=== PATIENT | male | born 1955 | race Caucasian/White ===

== ENCOUNTER 2018-11-12 17:54 | Emergency (ER) | payer BC ==
[2018-11-12] MEDS ORDERED: Metoclopramide IV* 5 MG/ML 2 ML VIAL IV ONE (18:09)
[2018-11-12] MEDS ORDERED: NS 0.9% 1000 ML** 1,000 ML IV ONE (18:09)
[2018-11-12] MEDS ORDERED: Morphine 4 MG/ML VIAL (1 ml) 4 MG/ML VIAL IV ONE (18:10)
[2018-11-12] MEDS ORDERED: DiMENhydriNATE IV* 50 MG/ML VIAL IV PUSH ONE (18:10)
[2018-11-12 19:24] LABS: INR 0.98 (0.77-1.02)
[2018-11-12 19:31] LABS: ABS Basophils 0 10^3/ul (0-0.2); ABS Eosinophils 0.1 10^3/ul (0-0.6); ABS Lymphocytes 1.1 10^3/ul (1.0-4.8); ABS Monocytes 0.6 10^3/ul (0-0.8); ABS Neutrophils 11.3 10^3/ul (1.5-7.7); ABS Nucleated RBC 0 10^3/ul; Eosinophil % 0.8 %; Hematocrit 44 % (36-46); Hemoglobin 14.9 g/dL (14.0-18.0); Lymphocyte % 8.2 %; Mean Corpuscular HGB Conc 34 g/dL (31-36); Mean Corpuscular Hemoglobin 29 pg (27-31); Mean Corpuscular Volume 87 fL (80-94); Mean Platelet Volume 8.6 fL (7.4-10.4); Nucleated Red Blood Cells % 0; Platelet Count 258 10^3/uL (150-450); Red Blood Count 5.08 10^6 /uL (4.18-5.48); Red Cell Distribution Width 14 % (10.5-15); White Blood Count 13.1 10^3/uL (3.5-10.8)
[2018-11-12 19:44] LABS: Albumin 4.3 g/dL (3.2-5.2); Albumin/Globulin Ratio 1.6 (1-3); BUN/Creatinine Ratio 16.1 (8-20); Calcium 9.6 mg/dL (8.6-10.3); EGFR African American 99.3 (>60); EGFR Non-African American 82.1 (>60); Globulin 2.7 g/dL (2-4); Potassium 4.3 mmol/L (3.5-5.0); Total Bilirubin 0.5 mg/dL (0.2-1.0)
[2018-11-12 19:49] LABS: Activated Partial Thrombo Time 25.9 seconds (26.0-36.3)
[2018-11-12 20:00] LABS: TSH (Thyroid Stimulating Horm) 3.32 mcIU/mL (0.34-5.60)
[2018-11-12] MEDS ORDERED: Ondansetron INJ* 2 MG/ML VIAL IV ONE (20:15)
--- NOTE | 2018-11-12 21:02 | ED ---
Headache - HPI Summary HPI Summary: Patient complains of sudden onset worst headache of life, severe nausea vomiting , dizziness, blurry vision at 3 PM today while sitting in his recliner watching TV. Patient states dizziness and blurred vision resolved after about 20 minutes , but per severe headache and nausea vomiting persist. Patient denies prior history of similar symptoms, prior history of headache. Patient denies medical history but has not seen a PCP in 13 years. Patient is retired, frequently sits and recliner and watches television through the day per son. Patient denies fever, cough, sore throat, neck stiffness, CP, SOB, diarrhea, abdominal pain, change in urine, change in BM. Medical history is none. Occasional EtOH. Denies recreational drug use. Nonsmoker. - History Of Current Complaint Chief Complaint: EDHeadache Stated Complaint: LIGHT HEADED/NAUSEA/VOMITING PER PT Time Seen by Provider: 11/12/18 18:05 Hx Obtained From: Patient Onset/Duration: Sudden Onset Initially Headache Was: "Worst Headache Ever", Severe Currently Pain Is: Severe Timing: Constant Character: Throbbing, Pressure Location of Headache: Frontal Aggravating Factor: Exertion, Position Change Allevating Factors: Nothing Associated Signs And Symptoms: Dizziness, Nausea, Vomiting, Visual Changes - Risk Factors SAH Risk Factors: Negative - Allergies/Home Medications Allergies/Adverse Reactions: Allergies Allergy/AdvReac Type Severity Reaction Status Date / Time No Known Allergies Allergy Verified 11/12/18 18:02 PMH/Surg Hx/FS Hx/Imm Hx Endocrine/Hematology History: Denies: Hx Diabetes Cardiovascular History: Denies: Hx Hypertension History: Denies: Hx Dialysis Sensory History: Denies: Hx Eye Prosthesis EENT History: Denies: Hx Deafness Neurological History: Denies: Hx Dementia Psychiatric History: Denies: Hx Autism Infectious Disease History: No Infectious Disease History: Denies: Traveled Outside the [place] in Last 30 Days - Family History Known Family History: Negative: Cardiac Disease, Hypertension, Diabetes - Social History Alcohol Use: Occasionally Substance Use Type: Reports: None Smoking Status (MU): Former Smoker Review of Systems Constitutional: Negative Positive: Blurred Vision ENT: Negative Cardiovascular: Negative Respiratory: Negative Positive: Vomiting, Nausea Genitourinary: Negative Musculoskeletal: Negative Skin: Negative Positive: Headache Psychological: Normal All Other Systems Reviewed And Are Negative: Yes Physical Exam - Summary Physical Exam Summary: Neuro exam normal. Abdomen soft nontender. Lung sounds clear to auscultation bilaterally. RRR. Triage Information Reviewed: Yes Vital Signs On Initial Exam: Initial Vitals Temp Pulse Resp BP Pulse Ox 98.9 F 71 18 152/97 98 11/12/18 17:57 11/12/18 17:57 11/12/18 17:57 11/12/18 17:57 11/12/18 17:57 Vital Signs Reviewed: Yes Appearance: Positive: Well-Appearing Skin: Positive: Warm Head/Face: Positive: Normal Head/Face Inspection Eyes: Positive: Normal Neck: Positive: Supple Respiratory/Lung Sounds: Positive: Clear to Auscultation Cardiovascular: Positive: Normal Abdomen Description: Positive: Nontender Musculoskeletal: Positive: Normal Neurological: Positive: Normal Psychiatric: Positive: Normal AVPU Assessment: Alert - Kelsey Coma Scale Best Eye Response: 4 - Spontaneous Best Motor Response: 6 - Obeys Commands Best Verbal Response: 5 - Oriented Coma Scale Total: 15 Diagnostics - Vital Signs Vital Signs Temp Pulse Resp BP Pulse Ox 11/12/18 20:37 66 19 141/87 96 11/12/18 20:32 64 24 88 11/12/18 18:34 18 11/12/18 17:57 98.9 F 71 18 152/97 98 - Laboratory Lab Results: Lab Results 11/12/18 11/12/18 11/12/18 Range/Units 18:57 18:57 18:57 WBC 13.1 H (3.5-10.8) 10^3/uL RBC 5.08 (4.18-5.48) 10^6 /uL Hgb 14.9 (14.0-18.0) g/dL Hct 44 (36-46) % MCV 87 (80-94) fL MCH 29 (27-31) pg MCHC 34 (31-36) g/dL RDW 14 (10.5-15) % Plt Count 258 (150-450) 10^3/uL MPV 8.6 (7.4-10.4) fL Neut % (Auto) 86.2 % Lymph % (Auto) 8.2 % Calhoun % (Auto) 4.6 % Eos % (Auto) 0.8 % Baso % (Auto) 0.2 % Absolute Neuts (auto) 11.3 H (1.5-7.7) 10^3/ul Absolute Lymphs (auto) 1.1 (1.0-4.8) 10^3/ul Absolute Monos (auto) 0.6 (0-0.8) 10^3/ul Absolute Eos (auto) 0.1 (0-0.6) 10^3/ul Absolute Basos (auto) 0 (0-0.2) 10^3/ul Absolute Nucleated RBC 0 10^3/ul Nucleated RBC % 0 INR (Anticoag Therapy) 0.98 (0.77-1.02) APTT 25.9 L (26.0-36.3) seconds Sodium 138 (135-145) mmol/L Potassium 4.3 (3.5-5.0) mmol/L Chloride 103 (101-111) mmol/L Carbon Dioxide 24 (22-32) mmol/L Anion Gap 11 (2-11) mmol/L BUN 15 (6-24) mg/dL Creatinine 0.93 (0.67-1.17) mg/dL Est GFR ( Amer) 99.3 (>60) Est GFR (Non-Af Amer) 82.1 (>60) BUN/Creatinine Ratio 16.1 (8-20) Glucose 147 H (70-100) mg/dL Calcium 9.6 (8.6-10.3) mg/dL Magnesium 2.0 (1.9-2.7) mg/dL Total Bilirubin 0.50 (0.2-1.0) mg/dL AST 22 (13-39) U/L ALT 35 (7-52) U/L Alkaline Phosphatase 74 (34-104) U/L Troponin I 0.00 (<0.04) ng/mL Total Protein 7.0 (6.4-8.9) g/dL Albumin 4.3 (3.2-5.2) g/dL Globulin 2.7 (2-4) g/dL Albumin/Globulin Ratio 1.6 (1-3) TSH 3.32 (0.34-5.60) mcIU/mL Result Diagrams: 11/12/18 18:57 11/12/18 18:57 Lab Statement: Any lab studies that have been ordered have been reviewed, and results considered in the medical decision making process. Headache Course/Dx - Course Course Of Treatment: Patient complains of sudden onset worst headache of life, severe nausea vomiting, dizziness, blurry vision at 3 PM today while sitting in his recliner watching TV. Patient states dizziness and blurred vision resolved after about 20 minutes, but per severe headache and nausea vomiting persist. Patient denies prior history of similar symptoms, prior history of headache. Patient denies medical history but has not seen a PCP in 13 years. Patient is retired, frequently sits and recliner and watches television through the day per son. Patient denies fever, cough, sore throat, neck stiffness, CP, SOB, diarrhea, abdominal pain, change in urine, change in BM. Medical history is none. Occasional EtOH. Denies recreational drug use. Nonsmoker. Physical exam:Neuro exam normal. Abdomen soft nontender. Lung sounds clear to auscultation bilaterally. RRR. Vital signs within normal limits. WBC 13.1. Labs otherwise unremarkable. CT brain positive for possible subdural hematoma versus meningioma. 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 MRA negative. MRI brain positive for meningioma. Dr. Hall felt patient's symptoms and consistent with meningioma, more consistent with subarachnoid. Patient evaluated by Dr. Gaviria who felt lumbar puncture was not necessary. Per Dr. Gaviria patient discharged with diagnosis of BPPV, Rx for meclizine. Follow-up with Dr. Hall for meningioma. Follow-up with neurology Dr. Coats and ENT Dr. Seo for vertigo. Patient understands and approves of plan. - Diagnoses Provider Diagnoses: Benign positional vertigo, Meningioma Discharge - Sign-Out/Discharge Documenting (check all that apply): Patient Departure Patient Received Moderate/Deep Sedation with Procedure: No - Discharge Plan Condition: Stable Disposition: HOME Prescriptions: Meclizine HCl 25 mg PO TID 15 Days #45 tab.chew Ondansetron ODT TAB* [Zofran 4 MG Odt TAB*] 4 mg PO Q8H PRN 4 Days #14 tab.odt PRN Reason: Nausea Patient Education Materials: Meningioma (ED), Benign Paroxysmal Positional Vertigo (ED) Referrals: Jose Mercer MD [Primary Care Provider] - Brittny Arboleda MD [Medical Doctor] - Melvin Coats MD [Medical Doctor] - Additional Instructions: Follow-up with Neurosurgery Dr. Arboleda for further evaluation of your meningioma. Follow-up with Neurology Dr. Coats and engagement specialist Dr. Seo for further evaluation of vertigo. Return to the ED for any new or worsening symptoms. - Billing Disposition and Condition Condition: STABLE Disposition: Home
[2018-11-12] MEDS ORDERED: Gadoteridol* (CONTRAST) 279.3 MG/ML 10 ML IV ONE (21:31)
--- NOTE | 2018-11-12 23:27 | ED ---
Progress - Progress Note Progress Note: Patient was evaluated by Dr. Gaviria upon request. HPI: This patient is a 63 year old M presenting to [facility] accompanied by family with a chief complaint of headache that began at 1500. Patient reports his headache is gone. Patient states he was sitting in a chair at home, getting ready to go to poker, and when he went to stand up he had the worst headache in his life. The patient rates the pain 7/10 in severity initially. Symptoms aggravated by movement. Symptoms alleviated by nothing. Patient reports vertigo (now resolved) , blurred vision (now resolved), nausea (now resolved), and vomiting (now resolved). Course/Dx - Course Course Of Treatment: Patient symptoms most likely secondary to benign positional vertigo. Pt has a history of ringing to his ears. Asymptomatic at this time, no meningeal signs. I did discuss the imaging results with the patient. Pt will be discharged with follow up from neurosurgery, neurology, and ENT. Discussed Dr. Cardenas suggestion for spinal tap, pt declined as well. Pt does not need spinal tap at this time. Patient is agreeable with this plan. - Diagnoses Provider Diagnoses: Benign positional vertigo, Meningioma Discharge - Sign-Out/Discharge Documenting (check all that apply): Patient Departure - Discharge home Patient Received Moderate/Deep Sedation with Procedure: No - Discharge Plan Condition: Stable Disposition: HOME Prescriptions: Meclizine HCl 25 mg PO TID 15 Days #45 tab.chew Ondansetron ODT TAB* [Zofran 4 MG Odt TAB*] 4 mg PO Q8H PRN 4 Days #14 tab.odt PRN Reason: Nausea Patient Education Materials: Meningioma (ED), Benign Paroxysmal Positional Vertigo (ED) Referrals: Melvin Coats MD [Medical Doctor] - Jose Mercer MD [Primary Care Provider] - Brittny Arboleda MD [Medical Doctor] - Additional Instructions: Follow-up with Neurosurgery Dr. Arboleda for further evaluation of your meningioma. Follow-up with Neurology Dr. Coats and e learning specialist Dr. Seo for further evaluation of vertigo. Return to the ED for any new or worsening symptoms. - Billing Disposition and Condition Condition: STABLE Disposition: Home - Attestation Statements Document Initiated by Scribe: Yes Documenting Scribe: Selam Peoples Provider For Whom Scribe is Documenting (Include Credential): Dr. Renetta Gaviria MD Scribe Attestation: I, Selam Peoples, scribed for Dr. Renetta Gaviria MD on 11/13/18 at 0625. Scribe Documentation Reviewed: Yes Provider Attestation: The documentation as recorded by the tayloribe, Selam Peoples accurately reflects the service I personally performed and the decisions made by me, Dr. Renetta Gaviria MD Status of Scribe Document: Viewed
--- NOTE | 2018-11-12 23:31 | CONS ---
CONSULTATION REPORT: DATE OF CONSULT: 11/12/18 - EMERGENCY DEPT HISTORY OF PRESENT ILLNESS: Patient is a very pleasant 63-year-old right- handed gentleman who was brought to the emergency room after an episode of acute onset of severe headache, requested to see the patient by ED team because of hyperdensity on the frontal interhemispheric fissure suspicious for a meningioma versus subarachnoid hemorrhage or interhemispheric subdural hematoma. Patient reports that he was sitting on a chair this afternoon watching TV and then he started experiencing the worst headache of his life. He had nausea and vomiting. He felt dizzy and had difficulty with walking. He reports that he still has a headache. He has mild neck stiffness. He denies any injuries or history of fall. He denies any weakness, numbness or tingling of his extremities. He has difficulty ambulating because of his dizziness. He denies urinary or GI incontinence. 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 PAST MEDICAL HISTORY: Patient denies any medical history, although he has not been seen for several years by a physician. PAST SURGICAL HISTORY: Negative. MEDICATIONS: Patient is not taking any home medications. ALLERGIES: No known drug allergies. SOCIAL HISTORY: Tobacco: Negative. Alcohol: Positive. He reports that he drinks 3 or 4 beers per week and 2 nights a week he plays poker and he drinks 3 or 4 beers at that time. Recreational drug use: Negative. Patient denies any history of recent infection. PHYSICAL EXAM: Patient is not in acute distress. He is awake and alert. He is oriented x3. His pupils are equal and reactive. Cranial nerves II through XII are grossly intact. Motor 4/5 to 5/5 in all extremities. No pronator drift. Sensory was grossly intact to light touch. Deep tendon reflexes +1 bilaterally. No clonus. No Babinski's. Cj's negative. Straight leg raise negative in the sitting position. Patient has no stiffness in the cervical spine. He has no tenderness to palpation of the thoracic or lumbar spine. He has free range of motion of the cervical spine. DIAGNOSTIC STUDIES/LAB DATA: Studies: Patient has a CT scan of the brain revealing a hyperdense lesion in the interhemispheric fissure in the anterior falx. It seems that it has the characteristics of a subarachnoid hemorrhage with convoluted edges crossing the midline, although it does not seem to extend all the way to the falx. There is no mass effect. There is no midline shift. ASSESSMENT: This is a very pleasant 63-year-old gentleman with complaints of severe headache and CT scan findings consistent with interhemispheric subarachnoid hemorrhage versus subdural hematoma. PLAN/RECOMMENDATIONS: Patient will be undergoing MRI of the brain with and without contrast to exclude the possibility of meningioma. If MRI confirms the presence of a subarachnoid hemorrhage, then patient may be considered a candidate for transfer as his history and CT scan findings are suspicious for subarachnoid hemorrhage. At this point, patient will have blood pressure control, will check his coagulation profile, will be given seizure prophylaxis, and may consider candidate for transfer pending the MRI results. Discussed in extent with the patient and his son regarding these options. Patient is agreeable with the plan. Thank you very much for allowing us to participate in the care of this patient. Please do not to hesitate to contact our office in case you have any further questions or concerns regarding the care of this patient. [id number]/[facility] #: [id number] [place]
[2018-11-12] MEDS ORDERED: Meclizine TAB* 12.5 MG PO ONE (23:50)
[2018-11-13 00:40] VITALS: BP 154/90
== END 2018-11-13 00:44 | disposition home or self-care (01) ==
LOC: ED 17:54
DX: H81.10 Benign paroxysmal vertigo, unspecified ear (principal); D32.9 Benign neoplasm of meninges, unspecified; R42 Dizziness and giddiness; R11.2 Nausea with vomiting, unspecified; Z87.891 Personal history of nicotine dependence
CPT/HCPCS: 36415; 70450; 70544; 70553; 80053; 83735; 84443; 84484; 85025; 85610; 85730; 93005; 96361; 96374; 96375; 99283; A9270-GY; A9579; J1240; J2270; J2405; J2765